=== PATIENT | female | born 1985 | race Caucasian/White ===

== ENCOUNTER 2017-12-16 15:58 | Emergency (ER) | payer BC, SELFPAY ==
[2017-12-16 16:02] VITALS: BP 135/84; PULSE 93; RESP 24; TEMP 37.2; O2SAT 99
[2017-12-16 16:10] VITALS: O2SAT 99
--- NOTE | 2017-12-16 16:23 | DI.US_ITS ---
SYMPTOM/DIAGNOSIS: RT FLANK PAIN, H/O STONES, RENAL ULTRASOUND: Routine examination was performed. The right kidney measures 13.9 cm. in length. There is moderate hydronephrosis. No calculi are identified. No renal mass is seen. There is normal blood flow to the right kidney. The left kidney measures 11.3 cm. long. No renal mass, calculus or obstruction is seen. The prevoid urinary bladder volume is 18 cc's. The right ureteral jet was visualized. The left ureteral jet was not visualized. IMPRESSION: Moderate right sided hydronephrosis. This may due to obstruction or extrinsic compression.
[2017-12-16 16:28] LABS: Bilirubin Negative (Negative); Blood Moderate (Negative); Clarity Clear; Glucose Negative (Negative); Ketones Trace mg/dL (Negative); Leukocyte Esterase Trace (Negative); Nitrite Negative (Negative); Urobilinogen 0.2 EU/dL (Up TO 0.2); pH 6.5 (5-8)
--- NOTE | 2017-12-16 16:30 | W.ED.GENAD ---
Discharge Plan Disposition Patient Disposition: [facility] Condition: Serious Discharge Details Chief Complaint: FlankPain Clinical Impression: Elevated liver function tests, Flank pain, Pre-eclampsia Primary Care Provider: Carmen Young ED Provider: Josy Condon Home Meds and New Rx's Prescriptions: No Action venlafaxine 75 MG tablet 150 mg PO DAILY RF: 0 labetalol 100 mg Tablet 100 mg PO BID RF: 0 aspirin [Aspirin Low Dose] 81 mg Tablet,Delayed Release (Dr/Ec) 81 mg PO DAILY RF: 0 21-iron fu-folic acid [ Complete] 14 mg iron- 400 mcg Tablet 1 tab PO DAILY RF: 0 Discharge Data Discharge Date/Time-TO BE ENTERED AT DEPARTURE: 12/16/17 22:00 Medical Decision Making Patient is a 32-year-old female presenting today with chief complaint of right flank pain. Patient is 32 weeks gestation, typically receives [employer] care at [facility] and she has history of preeclampsia and is required IVF. She reports that she began developing right-sided flank pain which she believes a kidney stone. Patient reports that she had multiple kidney stones in the past and feels similar. She also endorsing increased urgency, frequency as well as dysuria. Denies any fevers or chills. Denies any GI upset. No change in bowel habits. Reports that her last kidney stone was a partially 1 year ago. States that she typically requires ER visit secondary to discomfort. Has been trying Tylenol at home with no relief in her discomfort. Plan to obtain ultrasound laboratory evaluation urinalysis. Consult with Dr. Gonzales regarding pain management and current concerns. He advised that we may use narcotics. Advised that he could use, Dilaudid or fentanyl. Discussed this with the patient room she reports that morphine does not work well for her kidney stone pain historically. States that Dilaudid has worked better. We will give her 1 mg of Dilaudid IV at this time. He also advised that after we are done completing her evaluation for kidney stone, patient should be sent upstairs for nonstress test. Discussed this plan with the patient who is in agreement Urinalysis significant for moderate amount of blood. Trace amount of leukocyte esterase. Few epithelial cells with no bacteria. No leukocyte esterase. LFTs are minimally elevated. Patient does have history of preeclampsia. Blood pressure is current 135/84. Patient takes daily Labetalol. Ultrasound reviewed by radiologist. They advised that the right kidney measures 13.9 cm. There is mild to moderate right-sided hydronephrosis. Internal echoes are identified within this hydronephrosis. No stones. Left kidney measures 11.3 centimeters. No stones. No hydronephrosis. Urinary bladder volume measures 18.4 cm. Right ureteral jet is seen. Overall impression is mild to moderate right-sided hydronephrosis. Advised this could be secondary to calculus or external compression. Internal echoes are identified within this hydronephrosis. This may be artifactual but may be correlated with any concern for infectious products of blood products. The right ureteral jet is seen. The right kidney is measuring larger than the left. Advised that this may be secondary to hydronephrosis. Renal asymmetry or infection could also produce this appearance Consulted with Dr. Morales, urologist with [facility]. We discussed the patient's history, ultrasound and laboratory evaluation. He advised that this point he would wait for culture prior to treating for possible pyelonephritis. He advised that we treat this like a stone. Advised that the dysuria, increased frequency and urgency may all be related to the patient having a stone near the bladder. Advised that antibiotics are not necessary as the patient is not having elevated white count or fever. Consulted with Dr. Gonzales once again. He is quite concerned about the elevated LFTs. He wishes to monitor the patient overnight after nonstress test. I feel this would be appropriate particularly given the level of discomfort that she may also continue to get pain management. Platelets are normal, no protein in urine. BP normal, patient does take daily labetalol. Dr. Gonzales evaluated the patient, advised that she is hyperreflexive. Concerned she has preeclampsia and needs to go to [facility]. Dr. Gonzales ordered magnesium bolus. He contacted [facility], Dr. Haynes agrees to transfer. Patient became nauseated shortly after beginning magnesium. This was slowed at Dr. Gonzales's advised to nursing staff to maintenence dosing to help with nausea, this did help with symptomatic management. Patient has continued to need IV Dilaudid to help with discomfort. Dr. Gonzales is quesitoning if pain in right flank may be secondary to liver pain with preeclampsia. Discussed plan and concerns with the patient and her . She voiced understanding, has undergone similar episodes historically. She agrees to transfer. Pain, nausea have been controlled while here. She has completed her magnesium bolus that just prior to the time of transfer as was ordered by Dr. Gonzales. All of their questions and concerns were addressed and they are in agreement with this plan. HPI General Date/Time Provider Initiated Documentation: 12/16/17 16:10. Limitations to Documentation: no limitations. Information obtained by: patient. History of Present Illness 32 year old F presents to the emergency department with the chief complaint of right flank pain, described as severe, with intensity rated at 10. Quality is described as stabbing, and is localized to the back and right. Patient abdomen. Patient started experiencing this hour(s) (pain suddenly began at noon today) and it has been constant. No relieving factors improve symptom(s), No exacerbating factors reported . Patient notes loss of appetite; denies chest pain, cough, fever/chills, headaches, nausea/vomiting, rash and shortness of breath. Patient did receive the following treatments prior to arrival, other (Tylenol) Related Data Home Medications Medication Instructions Recorded Confirmed venlafaxine 150 mg PO DAILY 04/03/15 12/16/17 aspirin [Aspirin Low Dose] 81 mg PO DAILY 12/16/17 12/16/17 labetalol 100 mg PO BID 12/16/17 12/16/17 21-iron fu-folic acid 1 tab PO DAILY 12/16/17 12/16/17 [ Complete] Allergies Allergy/AdvReac Type Severity Reaction Status Date / Time Penicillins AdvReac Intermediate Hives Unverified 12/16/17 16:10 General Stated Complaint: FlankPain SCOTT: 2 Review of Systems Constitutional Reports as per HPI Cardiovascular Reports as per HPI Respiratory Reports as per HPI Gastrointestinal Reports as per HPI, Reports abdominal pain (pain from the right flank radiates anteriorly), Denies change in bowel habits, Denies cramping, Denies nausea and Denies vomiting Genitourinary Reports as per HPI, Denies abnormal vaginal bleeding, Reports urinary frequency, Denies dysuria, Reports flank pain, Denies urinary urgency and Denies vaginal discharge Musculoskeletal Reports back pain (right flank pain) Integumentary/Breasts Denies rash [facility] Social History Smoking/Tobacco Use Status: Never Exam Const General: cooperative, healthy appearing, uncomfortable (patient is moving constantly, holding right flank. Appears very uncomfortable), no acute distress, well developed and well groomed Nutritional Appearance: average body habitus and well nourished Orientation: alert and awake Eyes General: appearance normal, both eyes and all related structures Resp Effort & Inspection: normal respiratory effort and no respiratory distress Auscultation: clear to auscultation bilaterally Cardio Rate: regular rate Rhythm: regular rhythm Heart Sounds: S1 normal and S2 normal GI Inspection: abnormal to inspection (abdomen appearance consistent with gestational age) and no abdominal wall ecchymosis Back/Spine/Pelvis Back: CVA tenderness (right side), No mass, No erythema, No warmth and No ecchymosis Thoracic/Lumbar Spine: thoracic and lumbar spine normal to inspection, No paraspinal tenderness, No thoracic spinal tenderness and No lumbar spinal tenderness Skin General skin exam: no rashes or lesions noted Lesions: no lesions Rashes: no rashes Trauma: no lacerations or abrasions Neuro General: alert, awake and oriented x3 Cognition: normal cognition Speech: speech normal Gait: normal gait Psych Appearance: grossly normal and well kempt Mental Status: mental status grossly normal Speech and Movement: speech and movement normal Mood: congruent mood Affect: normal affect Course Vital Signs Temperature 37.2 C 12/16/17 16:02 Pulse 93 H 12/16/17 16:02 Respiratory Rate 24 12/16/17 16:02 Blood Pressure 135/84 12/16/17 16:02 Pulse Oximetry 99 12/16/17 16:02 Temperature 37.2 C 12/16/17 16:02 Temperature Source Skin 12/16/17 16:02 Pulse 93 H 12/16/17 16:02 Respiratory Rate 24 12/16/17 16:02 Respiratory Effort 12/16/17 16:13 Blood Pressure 135/84 12/16/17 16:02 Blood Pressure Position Supine 12/16/17 16:02 Pulse Oximetry 99 12/16/17 16:02 Oxygen Delivery Method Room Air 12/16/17 16:02 Oxygen Flow Rate 0 12/16/17 16:02 Pain Level 9 12/16/17 16:02
--- NOTE | 2017-12-16 16:33 | ED.GENADUL_ITS ---
Discharge Plan Disposition Patient Disposition: [facility] Condition: Serious Discharge Details Chief Complaint: FlankPain Clinical Impression: Elevated liver function tests, Flank pain, Pre-eclampsia Primary Care Provider: Carmen Young ED Provider: Josy Condon Home Meds and New Rx's Prescriptions: No Action venlafaxine 75 MG tablet 150 mg PO DAILY RF: 0 labetalol 100 mg Tablet 100 mg PO BID RF: 0 aspirin [Aspirin Low Dose] 81 mg Tablet,Delayed Release (Dr/Ec) 81 mg PO DAILY RF: 0 21-iron fu-folic acid [ Complete] 14 mg iron- 400 mcg Tablet 1 tab PO DAILY RF: 0 Discharge Data Discharge Date/Time-TO BE ENTERED AT DEPARTURE: 12/16/17 22:00 Medical Decision Making Patient is a 32-year-old female presenting today with chief complaint of right flank pain. Patient is 32 weeks gestation, typically receives [employer] care at [facility] and she has history of preeclampsia and is required IVF. She reports that she began developing right-sided flank pain which she believes a kidney stone. Patient reports that she had multiple kidney stones in the past and feels similar. She also endorsing increased urgency, frequency as well as dysuria. Denies any fevers or chills. Denies any GI upset. No change in bowel habits. Reports that her last kidney stone was a partially 1 year ago. States that she typically requires ER visit secondary to discomfort. Has been trying Tylenol at home with no relief in her discomfort. Plan to obtain ultrasound laboratory evaluation urinalysis. Consult with Dr. Gonzales regarding pain management and current concerns. He advised that we may use narcotics. Advised that he could use, Dilaudid or fentanyl. Discussed this with the patient room she reports that morphine does not work well for her kidney stone pain historically. States that Dilaudid has worked better. We will give her 1 mg of Dilaudid IV at this time. He also advised that after we are done completing her evaluation for kidney stone, patient should be sent upstairs for nonstress test. Discussed this plan with the patient who is in agreement Urinalysis significant for moderate amount of blood. Trace amount of leukocyte esterase. Few epithelial cells with no bacteria. No leukocyte esterase. LFTs are minimally elevated. Patient does have history of preeclampsia. Blood pressure is current 135/84. Patient takes daily Labetalol. Ultrasound reviewed by radiologist. They advised that the right kidney measures 13.9 cm. There is mild to moderate right-sided hydronephrosis. Internal echoes are identified within this hydronephrosis. No stones. Left kidney measures 11.3 centimeters. No stones. No hydronephrosis. Urinary bladder volume measures 18.4 cm. Right ureteral jet is seen. Overall impression is mild to moderate right-sided hydronephrosis. Advised this could be secondary to calculus or external compression. Internal echoes are identified within this hydronephrosis. This may be artifactual but may be correlated with any concern for infectious products of blood products. The right ureteral jet is seen. The right kidney is measuring larger than the left. Advised that this may be secondary to hydronephrosis. Renal asymmetry or infection could also produce this appearance Consulted with Dr. Morales, urologist with [facility]. We discussed the patient's history, ultrasound and laboratory evaluation. He advised that this point he would wait for culture prior to treating for possible pyelonephritis. He advised that we treat this like a stone. Advised that the dysuria, increased frequency and urgency may all be related to the patient having a stone near the bladder. Advised that antibiotics are not necessary as the patient is not having elevated white count or fever. Consulted with Dr. Gonzales once again. He is quite concerned about the elevated LFTs. He wishes to monitor the patient overnight after nonstress test. I feel this would be appropriate particularly given the level of discomfort that she may also continue to get pain management. Platelets are normal, no protein in urine. BP normal, patient does take daily labetalol. Dr. Gonzales evaluated the patient, advised that she is hyperreflexive. Concerned she has preeclampsia and needs to go to [facility]. Dr. Gonzales ordered magnesium bolus. He contacted [facility], Dr. Haynes agrees to transfer. Patient became nauseated shortly after beginning magnesium. This was slowed at Dr. Gonzales's advised to nursing staff to maintenence dosing to help with nausea , this did help with symptomatic management. Patient has continued to need IV Dilaudid to help with discomfort. Dr. Gonzales is quesitoning if pain in right flank may be secondary to liver pain with preeclampsia. Discussed plan and concerns with the patient and her . She voiced understanding, has undergone similar episodes historically. She agrees to transfer. Pain, nausea have been controlled while here. She has completed her magnesium bolus that just prior to the time of transfer as was ordered by Dr. Gonzales. All of their questions and concerns were addressed and they are in agreement with this plan. HPI General Date/Time Provider Initiated Documentation: 12/16/17 16:10 . Limitations to Documentation: no limitations . Information obtained by: patient . History of Present Illness 32 year old F presents to the emergency department with the chief complaint of right flank pain, described as severe, with intensity rated at 10. Quality is described as stabbing, and is localized to the back and right. Patient abdomen. Patient started experiencing this hour(s) (pain suddenly began at noon today) and it has been constant. No relieving factors improve symptom(s), No exacerbating factors reported . Patient notes loss of appetite; denies chest pain, cough, fever/chills, headaches, nausea/vomiting, rash and shortness of breath. Patient did receive the following treatments prior to arrival, other (Tylenol) Related Data Home Medications Medication Instructions Recorded Confirmed venlafaxine 150 mg PO DAILY 04/03/15 12/16/17 aspirin [Aspirin Low Dose] 81 mg PO DAILY 12/16/17 12/16/17 labetalol 100 mg PO BID 12/16/17 12/16/17 21-iron fu-folic acid 1 tab PO DAILY 12/16/17 12/16/17 [ Complete] Allergies Allergy/AdvReac Type Severity Reaction Status Date / Time Penicillins AdvReac Intermediate Hives Unverified 12/16/17 16:10 General Stated Complaint: FlankPain SCOTT: 2 Review of Systems Constitutional Reports as per HPI Cardiovascular Reports as per HPI Respiratory Reports as per HPI Gastrointestinal Reports as per HPI, Reports abdominal pain (pain from the right flank radiates anteriorly), Denies change in bowel habits, Denies cramping, Denies nausea and Denies vomiting Genitourinary Reports as per HPI, Denies abnormal vaginal bleeding, Reports urinary frequency , Denies dysuria, Reports flank pain, Denies urinary urgency and Denies vaginal discharge Musculoskeletal Reports back pain (right flank pain) Integumentary/Breasts Denies rash [facility] Social History Smoking/Tobacco Use Status: Never Exam Const General: cooperative, healthy appearing, uncomfortable (patient is moving constantly, holding right flank. Appears very uncomfortable), no acute distress , well developed and well groomed Nutritional Appearance: average body habitus and well nourished Orientation: alert and awake Eyes General: appearance normal, both eyes and all related structures Resp Effort & Inspection: normal respiratory effort and no respiratory distress Auscultation: clear to auscultation bilaterally Cardio Rate: regular rate Rhythm: regular rhythm Heart Sounds: S1 normal and S2 normal GI Inspection: abnormal to inspection (abdomen appearance consistent with gestational age) and no abdominal wall ecchymosis Back/Spine/Pelvis Back: CVA tenderness (right side), No mass, No erythema, No warmth and No ecchymosis Thoracic/Lumbar Spine: thoracic and lumbar spine normal to inspection, No paraspinal tenderness, No thoracic spinal tenderness and No lumbar spinal tenderness Skin General skin exam: no rashes or lesions noted Lesions: no lesions Rashes: no rashes Trauma: no lacerations or abrasions Neuro General: alert, awake and oriented x3 Cognition: normal cognition Speech: speech normal Gait: normal gait Psych Appearance: grossly normal and well kempt Mental Status: mental status grossly normal Speech and Movement: speech and movement normal Mood: congruent mood Affect: normal affect Course Vital Signs Temperature 37.2 C 12/16/17 16:02 Pulse 93 H 12/16/17 16:02 Respiratory Rate 24 12/16/17 16:02 Blood Pressure 135/84 12/16/17 16:02 Pulse Oximetry 99 12/16/17 16:02 Temperature 37.2 C 12/16/17 16:02 Temperature Source Skin 12/16/17 16:02 Pulse 93 H 12/16/17 16:02 Respiratory Rate 24 12/16/17 16:02 Respiratory Effort 12/16/17 16:13 Blood Pressure 135/84 12/16/17 16:02 Blood Pressure Position Supine 12/16/17 16:02 Pulse Oximetry 99 12/16/17 16:02 Oxygen Delivery Method Room Air 12/16/17 16:02 Oxygen Flow Rate 0 12/16/17 16:02 Pain Level 9 12/16/17 16:02
[2017-12-16] MEDS: HYDROmorphone 2 MG/ML VIAL 1 MG IVP ×3 (16:39→21:30)
[2017-12-16 16:46] LABS: Abs Immature Grans 0.03 k/cumm (0.0-0.09); Absolute Basophil Count 0.02 k/cumm (0.0-0.2); Absolute Eosinophil Count 0.13 k/cumm (0.0-0.7); Absolute Lymphocyte Count 2.37 k/cumm (1.2-3.4); Absolute Monocyte Count 0.95 k/cumm (0.11-0.7); Absolute Neutrophil Count 5.68 k/cumm (1.2-6.7); Basophils % 0.2; Eosinophils % 1.4; HGB 11.4 g/dL (12.0-15.5); Immature Grans % 0.3; Lymphocytes % 25.8; Mean Corp. HGB Concentration 34.5 g/dL (32.0-36.0); Mean Corpuscular Hemoglobin 28.1 pg (27.0-33.0); Mean Corpuscular Volume 81.3 fL (80-95); Mean Platelet Volume 10.2 fL (8.0-11.0); Monocytes % 10.3; Platelet Count 252 x1000/uL (130-400); RBC 4.06 m/cumm (4.00-5.20); RBC Distribution Width 12.9 % (11.7-14.6); White Blood Cell Count 9.18 k/cumm (4.4-10.8)
[2017-12-16 16:52] LABS: Bacteria Negative HPF (Negative); Crystals Negative HPF (Negative); Epithelial Cells Few HPF (Negative); Mucus Negative (Negative); Other Cells Negative (Negative); RBC >50 (0-2)
[2017-12-16 16:53] LABS: Casts Negative LPF (Negative)
[2017-12-16 16:54] LABS: C & S Indicated? Yes
[2017-12-16 17:11] LABS: ALT 81 U/L (12-78); AST 78 U/L (15-37); Albumin 2.7 g/dL (3.4-5.0); Alkaline Phosphatase 103 U/L (46-116); BUN 5 mg/dL (7-18); Bilirubin, Total 0.3 mg/dL (0.2-1.0); CREATININE 0.53 mg/dL (0.55-1.02); Calcium 9.1 mg/dL (8.5-10.1); Chloride 102 mmol/L (98-107); Glucose 75 mg/dL (70-100); Potassium 3.8 mmol/L (3.5-5.1); Sodium 136 mmol/L (136-145); Total Protein 6.7 g/dL (6.4-8.2)
--- NOTE | 2017-12-16 17:50 | DI.VRAD_ITS ---
EXAM: US Retroperitoneal Complete CLINICAL HISTORY: 32 years old, female; Pain; Other: Acute rt flank pain; TECHNIQUE: Real-time ultrasound of the retroperitoneum (complete) with image documentation. COMPARISON: No relevant prior studies available. FINDINGS: Right kidney: Right kidney measures 13.9 cm. There is [id number] right-sided hydronephrosis. Internal echoes are identified within this hydronephrosis. No stones. Left kidney: Left kidney measures 11.3 cm. No stones. No hydronephrosis. Bladder: Urinary bladder volume measures 18.4 cm cubed. The right ureteral jet is seen. IMPRESSION: 1. Mild to moderate right-sided hydronephrosis. This can be seen secondary to a calculus or external compression. Internal echoes are identified within this hydronephrosis. This may be artifactual but should be correlated with any concern for infectious products or blood products. The right ureteral jet is seen. 2. The right kidney is measuring larger than the left. This may be secondary to hydronephrosis. Renal asymmetry or infection could also produce this appearance. 3. Other findings as above. Dictated and Authenticated by: Sasha Koch MD. Ordering:ROSEMARIE WESLEY MD
[2017-12-16] MEDS: HYDROmorphone 2 MG/ML VIAL (18:04)
[2017-12-16] MEDS: MAGNESIUM SULFATE 4 GM/100 ML BAG 100 GM (19:12)
--- NOTE | 2017-12-16 19:15 | W.PM.HP.N ---
Assessment and Plan (1) Flank pain: Current visit: Yes Status: Acute (2) Elevated liver function tests: Current visit: Yes Status: Acute (3) Hypertension affecting in third trimester: Current visit: Yes Status: Acute Currently 32 weeks gestation with right flank pain and elevated liver function studies. While she does not have proteinuria she does have clinical findings suspicious for preeclampsia and possibly HELLP syndrome. The patient is a high risk followed by MFM at [facility] due to her obstetrical history, chronic hypertension and the IVF status of the . My recommendation is for transfer to [facility]. Will start on magnesium sulfate infusion and provide a first dose of betamethasone for lung maturity. The patient is aware of the risks of preeclampsia and risks of prematurity at this gestational age. I discussed the case with Dr. Kayla Haynes who is the accepting physician at [facility]. 32 year old @ 32 weeks gestation presents the emergency department with complaint of right flank pain. The patient does have a history of kidney stones and reports that this pain feels very similar to what she experienced in the past. During her evaluation she was noted to have isolated elevations in her liver function studies and also reports that last was complicated by preeclampsia presenting much the same way. Her medical history is also significant for chronic hypertension for which she takes labetalol and this is an IVF . Review of Systems Constitutional Comments: The patient reports a generalized malaise over the last several days. Respiratory Reports as per HPI Gastrointestinal Reports as per HPI Genitourinary Reports as per HPI Musculoskeletal Reports system reviewed and no additional complaints, except as docu Neurologic Reports system reviewed and no additional complaints, except as docu Comments: Denies headache, changes in vision. [facility] Social History Smoking/Tobacco Use Status: Never Meds Home Medications Medication Instructions Recorded Confirmed Type venlafaxine 150 mg PO DAILY 04/03/15 12/16/17 History aspirin [Aspirin Low Dose] 81 mg PO DAILY 12/16/17 12/16/17 History labetalol 100 mg PO BID 12/16/17 12/16/17 History 21-iron fu-folic acid 1 tab PO DAILY 12/16/17 12/16/17 History [ Complete] Allergies Allergy/AdvReac Type Severity Reaction Status Date / Time Penicillins AdvReac Intermediate Hives Unverified 12/16/17 16:10 Exam HENMT Head: normal to inspection Resp Effort & Inspection: normal respiratory effort Cardio Rate: regular rate Rhythm: regular rhythm GI Other: Abdomen is gravid. Nontender. No CVA tenderness. She has minimal tenderness in the lower back on the right. No RUQ tenderness. Neuro DTR's: Rt Biceps: 3+, Lt Biceps: 3+, Rt Patellar: 3+ and Lt Patellar: 3+ Coordination: other (3+ clonus ) Results Labs : 12/16/17 16:40 12/16/17 16:40 Laboratory Results - last 24 hr 12/16/17 12/16/17 12/16/17 16:23 16:40 16:40 WBC 9.18 RBC 4.06 Hgb 11.4 L Hct 33.0 L MCV 81.3 MCH 28.1 MCHC 34.5 RDW 12.9 Plt Count 252 MPV 10.2 Immature Gran % 0.3 Neutrophils % 62.0 Lymphocytes % 25.8 Monocytes % 10.3 Eosinophils % 1.4 Basophils % 0.2 Absolute Neutrophils 5.68 Absolute Lymphocytes 2.37 Absolute Monocytes 0.95 H Absolute Eosinophils 0.13 Absolute Basophils 0.02 Sodium 136 Potassium 3.8 Chloride 102 Carbon Dioxide 21.0 Anion Gap 13.0 H BUN 5 L Creatinine 0.53 L Estimated GFR/1.73 m2 >= 60.00 Glucose 75 Calcium 9.1 Total Bilirubin 0.3 AST 78 H ALT 81 H Alkaline Phosphatase 103 Total Protein 6.7 Albumin 2.7 L Urine Color Yellow Urine Clarity Clear Urine pH 6.5 Ur Specific [place] 1.010 Urine Protein Negative Urine Ketones Trace H Urine Blood Moderate H Urine Nitrite Negative Urine Bilirubin Negative Urine Urobilinogen 0.2 Ur Leukocyte Esterase Trace H Urine RBC >50 H Urine WBC 5-10 Ur Epithelial Cells Few Urine Crystals Negative Urine Bacteria Negative Urine Casts Negative Urine Mucus Negative Urine Other Negative Ur Culture Indicated? Yes Urine Glucose Negative
--- NOTE | 2017-12-16 19:19 | HPE_ITS ---
Assessment and Plan (1) Flank pain: Current visit: Yes Status: Acute (2) Elevated liver function tests: Current visit: Yes Status: Acute (3) Hypertension affecting in third trimester: Current visit: Yes Status: Acute Currently 32 weeks gestation with right flank pain and elevated liver function studies. While she does not have proteinuria she does have clinical findings suspicious for preeclampsia and possibly HELLP syndrome. The patient is a high risk followed by MFM at [facility] due to her obstetrical history, chronic hypertension and the IVF status of the . My recommendation is for transfer to [facility]. Will start on magnesium sulfate infusion and provide a first dose of betamethasone for lung maturity. The patient is aware of the risks of preeclampsia and risks of prematurity at this gestational age. I discussed the case with Dr. Kayla Haynes who is the accepting physician at [facility]. 32 year old @ 32 weeks gestation presents the emergency department with complaint of right flank pain. The patient does have a history of kidney stones and reports that this pain feels very similar to what she experienced in the past. During her evaluation she was noted to have isolated elevations in her liver function studies and also reports that last was complicated by preeclampsia presenting much the same way. Her medical history is also significant for chronic hypertension for which she takes labetalol and this is an IVF . Review of Systems Constitutional Comments: The patient reports a generalized malaise over the last several days. Respiratory Reports as per HPI Gastrointestinal Reports as per HPI Genitourinary Reports as per HPI Musculoskeletal Reports system reviewed and no additional complaints, except as docu Neurologic Reports system reviewed and no additional complaints, except as docu Comments: Denies headache, changes in vision. [facility] Social History Smoking/Tobacco Use Status: Never Meds Home Medications Medication Instructions Recorded Confirmed Type venlafaxine 150 mg PO DAILY 04/03/15 12/16/17 History aspirin [Aspirin Low Dose] 81 mg PO DAILY 12/16/17 12/16/17 History labetalol 100 mg PO BID 12/16/17 12/16/17 History 21-iron fu-folic acid 1 tab PO DAILY 12/16/17 12/16/17 History [ Complete] Allergies Allergy/AdvReac Type Severity Reaction Status Date / Time Penicillins AdvReac Intermediate Hives Unverified 12/16/17 16:10 Exam HENMT Head: normal to inspection Resp Effort & Inspection: normal respiratory effort Cardio Rate: regular rate Rhythm: regular rhythm GI Other: Abdomen is gravid. Nontender. No CVA tenderness. She has minimal tenderness in the lower back on the right. No RUQ tenderness. Neuro DTR's: Rt Biceps: 3+, Lt Biceps: 3+, Rt Patellar: 3+ and Lt Patellar: 3+ Coordination: other (3+ clonus ) Results Labs : 12/16/17 16:40 12/16/17 16:40 Laboratory Results - last 24 hr 12/16/17 12/16/17 12/16/17 16:23 16:40 16:40 WBC 9.18 RBC 4.06 Hgb 11.4 L Hct 33.0 L MCV 81.3 MCH 28.1 MCHC 34.5 RDW 12.9 Plt Count 252 MPV 10.2 Immature Gran % 0.3 Neutrophils % 62.0 Lymphocytes % 25.8 Monocytes % 10.3 Eosinophils % 1.4 Basophils % 0.2 Absolute Neutrophils 5.68 Absolute Lymphocytes 2.37 Absolute Monocytes 0.95 H Absolute Eosinophils 0.13 Absolute Basophils 0.02 Sodium 136 Potassium 3.8 Chloride 102 Carbon Dioxide 21.0 Anion Gap 13.0 H BUN 5 L Creatinine 0.53 L Estimated GFR/1.73 m2 >= 60.00 Glucose 75 Calcium 9.1 Total Bilirubin 0.3 AST 78 H ALT 81 H Alkaline Phosphatase 103 Total Protein 6.7 Albumin 2.7 L Urine Color Yellow Urine Clarity Clear Urine pH 6.5 Ur Specific [place] 1.010 Urine Protein Negative Urine Ketones Trace H Urine Blood Moderate H Urine Nitrite Negative Urine Bilirubin Negative Urine Urobilinogen 0.2 Ur Leukocyte Esterase Trace H Urine RBC >50 H Urine WBC 5-10 Ur Epithelial Cells Few Urine Crystals Negative Urine Bacteria Negative Urine Casts Negative Urine Mucus Negative Urine Other Negative Ur Culture Indicated? Yes Urine Glucose Negative
[2017-12-16 19:32] VITALS: BP 135/84; PULSE 93; RESP 24; TEMP 37.2; O2SAT 99
[2017-12-16] MEDS: Betamet Acet/Betamet Na Ph Inj. 30 MG/5 ML 12 MG IM (19:57)
[2017-12-16] MEDS: MAGNESIUM SULFATE 2 GM/50 ML BAG 50 GM (20:03)
[2017-12-16 21:30] VITALS: O2SAT 98
[2017-12-16] MEDS: Ondansetron 4 MG/2 ML VIAL IVP (21:30)
[2017-12-16 21:31] VITALS: BP 135/90; PULSE 102; O2SAT 98
[2017-12-16] MEDS: Normal Saline Flush 10 ML SYR IVP (21:31)
[2017-12-16 21:32] VITALS: O2SAT 98
== END 2017-12-16 22:00 ==
PROVIDERS: Emergency Provider Physician Assistant; PCP Nurse Practitioner
DX: O14.93 Unspecified pre-eclampsia, third trimester (principal); R10.9 Unspecified abdominal pain; R94.5 Abnormal results of liver function studies
CPT/HCPCS: 36415; 76770; 80053; 96374; 96375; 96376; 99223; 99285; 81003; 81015; 85025; 87086; 99284; J0702; J2270; J2405; J3475

== ENCOUNTER 2018-11-19 07:48 | Outpatient (CLI) | payer BC, SELFPAY ==
[2018-11-19 08:31] LABS: Kit/Specimen SENT
== END 2018-11-19 08:08 ==
PROVIDERS: PCP Nurse Practitioner
DX: Z20.89 Contact with and (suspected) exposure to other communicable diseases (principal)
CPT/HCPCS: 36415

== ENCOUNTER 2019-03-12 16:33 | Outpatient (REF) | payer BC, SELFPAY ==
--- NOTE | 2019-03-12 15:00 | PAPFT_PTH ---
PATIENT: TRAVIS SIERRA LOC: [facility] U#:[id number] AGE/SX: 33/F ROOM: RE03/12/[address]: Lili Maldonado : 1985 BED: DIS: 03/12/2019 SPEC #: [id number] RECD: 03/13/19 12:50 STATUS: MADALYN REShona #: [id number] ELADIO: 03/12/19 15:[address]: Lili Maldonado DEPT: FA Cytology RECD BY: Gayatri Craig ENTERED: 03/13/19 12:50 SP TYPE: PAPFT OTHR DR: Carmen Young Tissues: 1 - CX/ENDOCX FOR PAP SMEARS Procedures: PAP THIN PREP/UVM Screening HPV DNA PROBE Comments: [id number]
== END 2019-03-12 16:53 ==
LOC: NCHCN 16:33
PROVIDERS: PCP Nurse Practitioner; Visit Provider Family Medicine
DX: Z00.00 Encounter for general adult medical examination without abnormal findings (principal); Z12.4 Encounter for screening for malignant neoplasm of cervix; Z01.419 Encounter for gynecological examination (general) (routine) without abnormal findings
CPT/HCPCS: 88142; 87624

== ENCOUNTER 2019-06-23 08:47 | Outpatient (CLI) | payer BC, SELFPAY ==
[2019-06-24 15:46] LABS: COVID-19 RT-PCR Result Negative (Negative)
== END 2019-06-23 09:07 ==
PROVIDERS: PCP Nurse Practitioner; Visit Provider Family Medicine
DX: Z11.59 Encounter for screening for other viral diseases (principal)
CPT/HCPCS: U0003

== ENCOUNTER 2019-07-13 15:15 | Outpatient (REF) | payer BC, SELFPAY ==
[2019-07-13 20:53] LABS: Abs Immature Grans 0.01 k/cumm (0.0-0.09); Absolute Basophil Count 0.04 k/cumm (0.0-0.2); Absolute Eosinophil Count 0.14 k/cumm (0.0-0.7); Absolute Lymphocyte Count 2.08 k/cumm (1.2-3.4); Absolute Monocyte Count 0.61 k/cumm (0.11-0.7); Absolute Neutrophil Count 3.79 k/cumm (1.2-6.7); Basophils % 0.6; Eosinophils % 2.1; HCT 38.4 % (36.0-46.0); HGB 13.2 g/dL (12.0-15.5); Immature Grans % 0.1 %; Lymphocytes % 31.2; Mean Corp. HGB Concentration 34.4 g/dL (32.0-36.0); Mean Corpuscular Hemoglobin 28.6 pg (27.0-33.0); Mean Corpuscular Volume 83.1 fL (80-95); Mean Platelet Volume 10.3 fL (8.0-11.0); Monocytes % 9.1; Neutrophils % 56.9; Platelet Count 314 x1000/uL (130-400); RBC 4.62 m/cumm (4.00-5.20); RBC Distribution Width 12.8 % (11.7-14.6); White Blood Cell Count 6.67 k/cumm (4.4-10.8)
[2019-07-13 21:47] LABS: ALT 36 U/L (14-59); AST 29 U/L (15-37); Albumin 4.2 g/dL (3.4-5.0); Alkaline Phosphatase 51 U/L (46-116); BUN 11 mg/dL (7-18); Bilirubin, Total 0.3 mg/dL (0.2-1.0); CREATININE 0.76 mg/dL (0.55-1.02); Calcium 9.1 mg/dL (8.5-10.1); Chloride 100 mmol/L (98-107); Glucose 82 mg/dL (74-106); Potassium 4.2 mmol/L (3.5-5.1); Sodium 138 mmol/L (136-145); TSH (W/Ref FT4) 0.81 uIU/mL (0.36-3.74); Total Protein 7.6 g/dL (6.4-8.2); Vitamin B12 338 pg/mL (193-986)
== END 2019-07-13 15:35 ==
LOC: NCHCN 15:15
PROVIDERS: PCP Nurse Practitioner; Visit Provider Nurse Practitioner Family
DX: R53.83 Other fatigue (principal); F41.9 Anxiety disorder, unspecified; Z86.2 Personal history of diseases of the blood and blood-forming organs and certain disorders involving the immune mechanism
CPT/HCPCS: 80053; 82607; 84443; 85025

== ENCOUNTER 2019-08-19 19:07 | Outpatient (REF) | payer BC, SELFPAY ==
[2019-08-19 21:45] LABS: Lithium < 0.20 mmol/L (0.60-1.20)
== END 2019-08-19 19:27 ==
LOC: NCHCN 19:07
PROVIDERS: PCP Nurse Practitioner Family; Visit Provider Nurse Practitioner Family
DX: F31.60 Bipolar disorder, current episode mixed, unspecified (principal); Z51.81 Encounter for therapeutic drug level monitoring
CPT/HCPCS: 80178